=== PATIENT | female | born 1980 | race Caucasian/White ===

== ENCOUNTER 2017-08-08 10:45 | Emergency (ER) | payer OTHER ==
[2017-08-08 11:08] VITALS: BP 125/90; PULSE 76; TEMP 98; BMI 36.6
[2017-08-08] MEDS ORDERED: KETOROLAC TROMETHAMINE 60 MG/2 ML VIAL IM ONE (11:55)
--- NOTE | 2017-08-08 11:58 | PDOC ---
History of Present Illness - General Chief Complaint: Pain Stated Complaint: RT ARM PAIN Time Seen by Provider: 08/08/17 11:15 History Source: Patient Exam Limitations: No Limitations - History of Present Illness Initial Comments: 08/08/17 12:27 My chief complaint: Right shoulder pain worsening History of present illness: Patient is a 37-year-old female with a history of anemia here today complaining of worsening right shoulder pain that has been chronic in nature for over the last 3 years however has been worse the last few days. Patient also reports having neck pain recently. Patient denies any tingling of her arm except if she sleeps on her right side on her arm. Patient reports that pain radiates to her right shoulder to her right elbow area. Patient is to have an MRI soon is pending approval of her right shoulder. Patient denies carrying anything heavy or doing any strenuous exercises. Patient denies any chance of . Patient reports that she did see an orthopedist however does not remember their name. Timing/Duration: getting worse Severity: moderate (rt. lateral neck, shoulder, upper rt arm) Associated Symptoms: reports: denies symptoms Past History - Past Medical History Allergies/Adverse Reactions: Allergies Allergy/AdvReac Type Severity Reaction Status Date / Time No Known Allergies Allergy Verified 08/08/17 11:05 Home Medications: Ambulatory Orders Cyclobenzaprine HCl [Flexeril -] 10 mg PO Q8H PRN #21 tablet 08/08/17 Naproxen [Naprosyn -] 500 mg PO BID PRN #14 tablet 08/08/17 Anemia: Yes Cardiac Disorders: No COPD: No CHF: No - Surgical History Abdominal Surgery: Yes (ECTOPIC PREG) - Reproductive History (#): 4 Para: 1 Ectopic : Yes Therapeutic (s) & number: Yes (1) Spontaneous : 1 - Suicide/Smoking/Psychosocial Hx Smoking Status: Yes Smoking History: Current every day smoker Have you smoked in the past 12 months: No Number of Cigarettes Smoked Daily: 5 If you are a former smoker, when did you quit?: 2 weeks ago Information on smoking cessation initiated: Yes 'Breaking Loose' booklet given: 08/08/17 Hx Alcohol Use: No (SOCIAL) Drug/Substance Use Hx: No Substance Use Type: None *Physical Exam - Vital Signs Last Vital Signs Temp Pulse Resp BP Pulse Ox 98.0 F 76 18 125/90 100 08/08/17 11:05 08/08/17 11:05 08/08/17 11:05 08/08/17 11:05 08/08/17 11:05 ED Treatment Course - ADDITIONAL ORDERS Additional order review: Laboratory Results 08/08/17 11:35 Urine HCG, Qual Negative Medical Decision Making - Medical Decision Making 08/08/17 12:30 Patient is a 37-year-old female with a history of anemia here today complaining of worsening right shoulder pain that has been chronic in nature for over the last 3 years however has been worse the last few days. Patient also reports having neck pain recently. Patient denies any tingling of her arm except if she sleeps on her right side on her arm. Patient reports that pain radiates to her right shoulder to her right elbow area. Patient is to have an MRI soon is pending approval of her right shoulder. Patient denies carrying anything heavy or doing any strenuous exercises. Patient denies any chance of . Patient reports that she did see an orthopedist however does not remember their name. Rt. neck pain Rt. Shoulder pain chronic worsening PLAN: urine HCG negative Toradol 60 mg IM now naprosyn 500 mg bid prn pain # 14 tabs flexeril 10 mg q 8 hr prn muscle spasm # 21 follow up with ortho 08/08/17 12:48 08/08/17 12:53 *DC/Admit/Observation/Transfer Diagnosis at time of Disposition: Neck pain on right side Shoulder pain, right Qualifiers: Chronicity: acute Qualified Code(s): M25.511 - Pain in right shoulder - Discharge Dispostion Disposition: HOME Condition at time of disposition: Stable - Referrals Referrals: Za Calloway MD [Primary Care Provider] - Kalin Constantino MD [Staff Physician] - - Patient Instructions Additional Instructions: Follow-up with orthopedist as soon as possible for further evaluation Return to emergency room for worsening symptoms increased pain or numbness of arm or weakness Avoid Any strenuous activities or exercise Patient voiced understanding of discharge instructions and all questions were answered Thank you for choosing [facility], [place] emergency room for your medical need today - Post Discharge Activity
[2017-08-08] MEDS ORDERED: KETOROLAC TROMETHAMINE 60 MG/2 ML VIAL ONE (12:05)
== END 2017-08-08 12:55 | disposition home or self-care (01) ==
LOC: JERFT 10:45
DX: M54.2 Cervicalgia (principal); M25.511 Pain in right shoulder
CPT/HCPCS: 84703; 99281-25

== ENCOUNTER 2018-11-30 08:29 | Day surgery (SDC) | payer OTHER ==
--- NOTE | 2018-11-30 07:37 | OP ---
Operative Note - Note: Operative Date: 11/30/18 Pre-Operative Diagnosis: Right rotator cuff tear Operation: Shoulder arthroscopy with rotator cuff repair and biceps tenodesis Implants: Arthrex SwiveLock x4, [employer] q-fix x1 Post-Operative Diagnosis: Same as Pre-op Surgeon: Jr Valentin Wellness Director: Brianna Morales Anesthesiologist/CODE NUMBER STAMPER: Brenda Martinez Anesthesia: General Operative Report Dictated: Yes
[2018-11-30 08:47] VITALS: BMI 37.8
[2018-11-30] MEDS ORDERED: EPINEPHrine 1:1,000 1 MG/1 ML - 30ML VIAL (INJECTION) ONE (11:19)
[2018-11-30] MEDS ORDERED: DEXAMETHASONE SOD PHOSPHATE/PF 10 MG/ML SDV ONE (11:56)
[2018-11-30] MEDS ORDERED: MIDAZOLAM HCL 2 MG/2 ML SINGLE DOSE VIAL ONE ×3 (11:56→13:32)
[2018-11-30] MEDS ORDERED: ROPIVACAINE HCL 0.5% 30ML VIAL ONE (11:57)
[2018-11-30] MEDS ORDERED: ceFAZolin SODIUM 1 GM VIAL ONE (12:35)
[2018-11-30] MEDS ORDERED: oxyCODONE HCL 5 MG TABLET PO PRN (12:52)
[2018-11-30] MEDS ORDERED: DEXAMETHASONE SOD PHOSPHATE 4 MG/1 ML VIAL ONE (12:52)
[2018-11-30] MEDS ORDERED: ONDANSETRON 4 MG/2 ML VIAL IVPUSH PRN (12:52)
[2018-11-30] MEDS ORDERED: LACTATED RINGERS SOLUTION 1,000 ML IV SCH (13:00)
[2018-11-30] MEDS ORDERED: LIDOCAINE 1%/EPI 1:100000 (20 ML MULTI DOSE VIAL) ONE (14:11)
[2018-11-30 15:10] VITALS: TEMP 98.2
--- NOTE | 2018-11-30 15:55 | OP ---
DATE OF OPERATION: 11/30/2018 PREOPERATIVE DIAGNOSIS: Right shoulder rotator cuff tear, biceps tendinosis. POSTOPERATIVE DIAGNOSIS: Right shoulder rotator cuff tear, biceps tendinosis. PROCEDURE: Right shoulder arthroscopy with rotator cuff repair, subacromial decompression, biceps tenodesis. SURGEON: Jr Valnetin MD CHANNEL MANAGER: DEVORAH Salinas, whose skillful assistance was necessary for the safe and timely performance of this procedure. Ms. Morales was able to provide limb positioning, retraction, driving the camera, suture passage, as well as orthopedic fixation hardware. ANESTHESIA: Regional, local sedation. POSTOPERATIVE CONDITION: Stable. COMPLICATIONS: None. IMPLANTS: Arthrex SwiveLock x4, [employer] Q-FIX x1. INDICATIONS: This is a pleasant 38-year-old female who is suffering from shoulder pain. MRI demonstrated a full-thickness rotator cuff tear. Treatment options including nonoperative versus operative management were reviewed. Operative risks were reviewed in detail including bleeding, infection, neurovascular injury, need for further surgery, postoperative pain and stiffness, re-tear. We discussed medical risks such as heart attack, stroke, DVT, PE, and . I reviewed the lengthy recovery protocol. I discussed postoperative rehabilitation limitations. I addressed all the patient's questions and concerns. She voiced understanding and elected to proceed. DESCRIPTION OF PROCEDURE: The patient was brought to the operating room after administration of a regional block in the preoperative holding area. The right upper extremity was prepped and draped in the usual sterile fashion. A preoperative dose of antibiotics was given, and the usual timeout procedure was performed. The arm was examined demonstrating full range of motion. Bony landmarks were marked out. Posterior viewing portal was now established. The arthroscope was passed to the glenohumeral joint. Examination of the glenohumeral surface demonstrated no significant cartilage lesions. Passing the arthroscope to the superior labrum demonstrated some fraying. An anterior portal was established under spinal needle localization and it was probed. Labrum was found to be stable. The subscapularis was seen to be intact with no lesions. The supraspinatus appeared torn full-thickness at its anterior-most portion. Intraarticular of the biceps appeared unremarkable. However, drawing the biceps into the joint demonstrated some yellowing and streak wear of the tendon consistent with tendinosis. The biceps tenotomy was now performed. The stump was smoothed down to a stable base. The arthroscope was now passed subacromial. Here, the bursal side of the rotator cuff tear was identified. There was significant fraying on the undersurface of the acromion consistent with impingement. A subacromial decompression was now performed utilizing combination of electrocautery as well as a 5-0 shaver. Attention was now turned to the footprint. Here, a shaver was used to debride any soft tissue and a superficial layer of cortical bone. A 6.2 K-wire was used to make multiple passes into the bed to allow for marrow extravasation. The decision was made to use a double-row repair. Two medial anchors were punched then inserted from the SpeedBridge kit. Excellent purchase was achieved. The FIRSTPASS Suture Passer was now used to pass the sutures through the cuff. Sutures were then splint and passed in a crossing pattern. Two ends were loaded into an anterior anchor which was punched and inserted and two ends were placed into a posterior anchor which was then inserted. This formed the crossing pattern. This secured the rotator cuff down to the anatomic footprint. The shoulder was passed through a range of motion and seemed to be stable. The excess sutures were now cut and removed. Attention was then turned anteriorly. The excess fluid was withdrawn from the joint. Portals were sutured using 3-0 nylon. The shoulder was once again prepped now. The area over the pectoralis tendon was injected subcutaneously with lidocaine with epinephrine. A 15 blade was now used to make an incision on the pectoralis tendon. Finger dissection was carried down to the pectoralis tendon and then under toward to where the biceps was located. The biceps was then retrieved out the anterior wound. A rasp was then used to roughen the biceps groove. A Q-FIX anchor was now drilled into the mid portion of the biceps groove. The ends were whipstitched to the biceps tendon. The excess tendon was trimmed off. Utilizing yesenia technique, the biceps was now drawn into the groove securing the tendon in the groove. The wound was now copiously irrigated. The skin was then closed with 4-0 nylon vertical mattress sutures. Sterile dressings were placed. The patient was now transferred to recovery room in stable condition. Dede GAMING/[id number] MTDGlenny
[2018-11-30 18:05] VITALS: BP 127/82; PULSE 88
== END 2018-11-30 17:30 | disposition home or self-care (01) ==
LOC: FASU 08:29
PROVIDERS: ATTEND Orthopaedic Surgery Sports Medicine
PROC: 0RNJ4ZZ Release Right Shoulder Joint, Percutaneous Endoscopic Approach (ICD-10-PCS; 2018-11-30)
PROC: 0LQ14ZZ Repair Right Shoulder Tendon, Percutaneous Endoscopic Approach (ICD-10-PCS; principal; 2018-11-30 12:53)
PROC: 0LS14ZZ Reposition Right Shoulder Tendon, Percutaneous Endoscopic Approach (ICD-10-PCS; 2018-11-30 12:53)
DX: M75.121 Complete rotator cuff tear or rupture of right shoulder, not specified as traumatic (principal); M75.21 Bicipital tendinitis, right shoulder
CPT/HCPCS: 94760

== ENCOUNTER 2019-10-17 21:35 | Emergency (ER) | payer OTHER ==
[2019-10-17] MEDS ORDERED: KETOROLAC TROMETHAMINE 30 MG/1 ML VIAL IM ONE (21:44)
--- NOTE | 2019-10-17 21:44 | PDOC ---
Rapid Medical Evaluation Time Seen by Provider: 10/17/19 21:38 Medical Evaluation: Allergies Allergy/AdvReac Type Severity Reaction Status Date / Time No Known Allergies Allergy Verified 11/30/18 08:36 10/17/19 21:39 CC: atraumatic left lateral neck pain radiating down LUE PE: FROM cervical spine. No bony tenderness. Orders: tordaol Patient will proceed to ER for further evaluation. Discharge Disposition - Diagnosis Cervical radicular pain - Referrals - Patient Instructions - Post Discharge Activity
[2019-10-17 21:46] VITALS: BP 113/83; PULSE 88; TEMP 97.6; BMI 42.9
[2019-10-17] MEDS ORDERED: KETOROLAC TROMETHAMINE 60 MG/2 ML VIAL IM ONE (22:35)
--- NOTE | 2019-10-17 22:37 | PDOC ---
History of Present Illness - General Chief Complaint: Pain Stated Complaint: NECK PAIN Time Seen by Provider: 10/17/19 21:38 - History of Present Illness Initial Comments: 10/17/19 22:36 39-year-old female without comorbidities assures me there is no chance of presents for left-sided neck pain with left upper extremity radicular symptoms x2 days. No systemic symptoms loss of bowel or bladder function saddle paresthesias or weakness. Past History - Past Medical History Allergies/Adverse Reactions: Allergies Allergy/AdvReac Type Severity Reaction Status Date / Time No Known Allergies Allergy Verified 11/30/18 08:36 Home Medications: Ambulatory Orders Cyclobenzaprine HCl [Flexeril 10 mg] 10 mg PO BID PRN 11/30/18 Ibuprofen/Diphenhydramine Cit [Advil Pm Caplet] 1 tab PO HS 11/30/18 Ranitidine [Zantac -] 150 mg PO DAILY 11/30/18 Cyclobenzaprine HCl [Flexeril 10 mg] 10 mg PO HS PRN #10 tablet 10/17/19 Methylprednisolone [Medrol Dose Candido] 4 mg PO ASDIR #21 tablet 10/17/19 Anemia: Yes (AFTER ECTOPIC -2018) Asthma: No Cancer: No Cardiac Disorders: No CVA: No COPD: No CHF: No Dementia: No Diabetes: No GI Disorders: Yes (GERD) Disorders: No HTN: No Hypercholesterolemia: No Liver Disease: No Seizures: No Thyroid Disease: No - Surgical History Abdominal Surgery: Yes (BILATERAL SALPINGECTOMY) Appendectomy: No Cardiac Surgery: No Cholecystectomy: No Lung Surgery: No Neurologic Surgery: No Orthopedic Surgery: No - Reproductive History (#): 4 Para: 1 Ectopic : Yes Therapeutic (s) & number: Yes (1) Spontaneous : 1 - Psycho Social/Smoking Cessation Hx Smoking Status: Yes Smoking History: Never smoked Have you smoked in the past 12 months: No Number of Cigarettes Smoked Daily: 3 If you are a former smoker, when did you quit?: 2 weeks ago 'Breaking Loose' booklet given: 08/08/17 Hx Alcohol Use: No Drug/Substance Use Hx: No Substance Use Type: Alcohol Hx Substance Use Treatment: No Review of Systems - Review of Systems Musculoskeletal: Yes: Neck Pain *Physical Exam - Vital Signs Last Vital Signs Temp Pulse Resp BP Pulse Ox 97.6 F 88 20 113/83 95 01/29/20 21:42 10/17/19 21:42 10/17/19 21:42 10/17/19 21:42 10/17/19 21:42 - Physical Exam 10/17/19 22:36 Cervical spine skin color and temperature normal range of motion is limited. No midline tenderness. Mild left-sided para cervical musculature spasm and tenderness left-sided trapezial spasm and tenderness. 5 out of 5 strength bilateral upper extremities without gross sensorimotor deficits neurovascular intact. Positive Spurling maneuver on the left negative on the right. Upper extremity compartments are soft and nontender. Neurovascularly intact Medical Decision Making - Medical Decision Making 10/17/19 22:36 Toradol in the emergency room Medrol Dosepak for radicular symptoms and Flexeril at home for spasm follow-up with neurosurgery. Discharge - Discharge Information Problems reviewed: Yes Clinical Impression/Diagnosis: Cervical radicular pain Condition: Stable Disposition: HOME - Admission No - Additional Discharge Information Prescriptions: Cyclobenzaprine HCl [Flexeril 10 mg] 10 mg PO HS PRN #10 tablet PRN Reason: Muscle Spasms Methylprednisolone [Medrol Dose Candido] 4 mg PO ASDIR #21 tablet - Follow up/Referral Referrals: Nhung Hernandez NP [Primary Care Provider] - Rakesh Zhou MD, FAANS [Staff Physician] - - Patient Discharge Instructions Additional Instructions: Please start the Medrol Dosepak tomorrow morning and take it as directed. Flexeril as a muscle relaxer 1 tablet before bedtime will make you sleepy. Return to the emergency room for worsening symptoms and without fail follow-up with neurosurgery in 2 to 3 days for further evaluation and treatment options. - Post Discharge Activity
[2019-10-17] MEDS ORDERED: KETOROLAC TROMETHAMINE 60 MG/2 ML VIAL ONE (22:45)
== END 2019-10-17 22:53 | disposition home or self-care (01) ==
LOC: JERFT 21:35
PROC: 3E0233Z Introduction of Anti-inflammatory into Muscle, Percutaneous Approach (ICD-10-PCS; principal; 2019-10-17)
DX: M54.12 Radiculopathy, cervical region (principal); K21.9 Gastro-esophageal reflux disease without esophagitis; D64.9 Anemia, unspecified; Z90.79 Acquired absence of other genital organ(s)
CPT/HCPCS: 99282-25

== ENCOUNTER 2019-10-22 16:16 | Emergency (ER) | payer OTHER ==
[2019-10-22 16:28] VITALS: BP 177/104; PULSE 94; TEMP 97.9; BMI 42.9
--- NOTE | 2019-10-22 18:14 | PDOC ---
History of Present Illness - General Chief Complaint: Pain Stated Complaint: LEFT ARM PAIN Time Seen by Provider: 10/22/19 17:56 - History of Present Illness Initial Comments: 10/22/19 18:12 39-year-old female without comorbidities presents for left upper extremity cervical radiculopathy. Seen last week given a Medrol Dosepak and Flexeril she is requesting a refill on the Flexeril and she has not followed up with a neurosurgeon because they do not take her insurance. Past History - Past Medical History Allergies/Adverse Reactions: Allergies Allergy/AdvReac Type Severity Reaction Status Date / Time No Known Allergies Allergy Verified 10/22/19 16:28 Home Medications: Ambulatory Orders Cyclobenzaprine HCl [Flexeril 10 mg] 10 mg PO BID PRN 11/30/18 Ibuprofen/Diphenhydramine Cit [Advil Pm Caplet] 1 tab PO HS 11/30/18 Ranitidine [Zantac -] 150 mg PO DAILY 11/30/18 Cyclobenzaprine HCl [Flexeril 10 mg] 10 mg PO HS PRN #10 tablet 10/17/19 Methylprednisolone [Medrol Dose Candido] 4 mg PO ASDIR #21 tablet 10/17/19 Cyclobenzaprine HCl [Flexeril 10 mg] 10 mg PO HS PRN #10 tablet 10/22/19 Anemia: Yes (AFTER ECTOPIC -2018) Asthma: No Cancer: No Cardiac Disorders: No CVA: No COPD: No CHF: No Dementia: No Diabetes: No GI Disorders: Yes (GERD) Disorders: No HTN: No Hypercholesterolemia: No Liver Disease: No Seizures: No Thyroid Disease: No - Surgical History Abdominal Surgery: Yes (BILATERAL SALPINGECTOMY) Appendectomy: No Cardiac Surgery: No Cholecystectomy: No Lung Surgery: No Neurologic Surgery: No Orthopedic Surgery: No - Reproductive History (#): 4 Para: 1 Ectopic : Yes Therapeutic (s) & number: Yes (1) Spontaneous : 1 - Immunization History Immunization Up to Date: Yes - Psycho Social/Smoking Cessation Hx Smoking Status: Yes Smoking History: Never smoked Have you smoked in the past 12 months: No Number of Cigarettes Smoked Daily: 3 If you are a former smoker, when did you quit?: 2 weeks ago Information on smoking cessation initiated: No 'Breaking Loose' booklet given: 08/08/17 Hx Alcohol Use: No Drug/Substance Use Hx: No Substance Use Type: Alcohol Hx Substance Use Treatment: No Review of Systems - Review of Systems Musculoskeletal: Yes: Neck Pain *Physical Exam - Vital Signs Last Vital Signs Temp Pulse Resp BP Pulse Ox 97.9 F 94 H 18 177/104 H 99 10/22/19 16:24 10/22/19 16:24 10/22/19 16:24 10/22/19 16:24 10/22/19 16:24 - Physical Exam 10/22/19 18:13 Cervical spine skin color and temperature are normal. There is decreased painful range of motion of the neck no midline tenderness moderate paracervical musculature spasm and tenderness 5 out of 5 strength in bilateral upper extremities without gross sensorimotor deficits neurovascular intact Medical Decision Making - Medical Decision Making 10/22/19 18:14 Flexeril refilled new neurosurgeon given to patient for follow-up Discharge - Discharge Information Problems reviewed: Yes Clinical Impression/Diagnosis: Cervical radicular pain Condition: Stable Disposition: HOME - Admission No - Additional Discharge Information Prescriptions: Cyclobenzaprine HCl [Flexeril 10 mg] 10 mg PO HS PRN #10 tablet PRN Reason: Muscle Spasms - Follow up/Referral Referrals: Nhung Hernandez NP [Primary Care Provider] - Clem Tolbert MD [Staff Physician] - - Patient Discharge Instructions Additional Instructions: Continue with the Flexeril and ibuprofen as directed and return to the emergency room should symptoms worsen. Please follow-up with neurosurgery without fail in 2 to 3 days for further evaluation and treatment options. - Post Discharge Activity
== END 2019-10-22 18:18 | disposition home or self-care (01) ==
LOC: JERFT 16:16
DX: M54.12 Radiculopathy, cervical region (principal); D64.9 Anemia, unspecified; K21.9 Gastro-esophageal reflux disease without esophagitis; Z90.79 Acquired absence of other genital organ(s)
CPT/HCPCS: 99282-25

== ENCOUNTER 2021-05-22 16:30 | Emergency (ER) | payer OTHER ==
[2021-05-22 16:57] VITALS: BP 146/110; PULSE 97; TEMP 98.6; BMI 39.4
[2021-05-22] MEDS ORDERED: KETOROLAC TROMETHAMINE 30 MG/1 ML VIAL IM ONE (18:04)
[2021-05-22] MEDS ORDERED: METHOCARBAMOL 500 MG TABLET PO ONE (18:04)
[2021-05-22] MEDS ORDERED: METHOCARBAMOL 500 MG TABLET ONE (18:06)
[2021-05-22] MEDS ORDERED: KETOROLAC TROMETHAMINE 30 MG/1 ML VIAL ONE (18:07)
== END 2021-05-22 18:27 | disposition home or self-care (01) ==
LOC: JER 16:30
PROC: 3E0233Z Introduction of Anti-inflammatory into Muscle, Percutaneous Approach (ICD-10-PCS; principal; 2021-05-22)
DX: M54.5 Low back pain (principal); G89.29 Other chronic pain
CPT/HCPCS: 99283-25